=== PATIENT | female | born 1955 | race Caucasian/White ===

== ENCOUNTER 2018-01-01 14:59 | Inpatient (IN) | payer MEDICARE ==
[~2018-01-01] VITALS: Ht 157.5 cm; Wt 74.8 kg
[~2018-01-01 14:59] MED LIST: AMLO10 PO; Bactrim Ds Tab1 EACH PO; CEPH500 PO; CYCL10 PO; Cleocin HCl300 MG PO; ERYT.5TO RIGHTEYE; FENT25TP TOP; IBUP800 PO; OXYACE5T PO; Oxycodone HCl20 M1 PO; SIMV10 PO; Ultram50 MG PO; Zofran Odt4 MG SL; Zofran8 MG PO
[2018-01-01 15:41] LABS: BASOPHILS ABSOLUTE AUTO 0.03 K/mm3 (0.00-0.23); BASOPHILS PERCENT AUTO 0 % (0-2); EOSINOPHILS ABSOLUTE AUTO 0.02 K/mm3 (0.00-0.68); EOSINOPHILS PERCENT AUTO 0 % (0-6); Hematocrit 41.8 % (33.0-51.0); Hemoglobin 13.4 g/dL (11.5-16.0); IMMATURE GRAN ABSOLUTE AUTO 0.03 K/mm3 (0.00-0.10); IMMATURE GRAN PERCENT AUTO 0 % (0-1); LYMPHOCYTES PERCENT AUTO 15 % (21-46); MONOCYTES ABSOLUTE AUTO 0.49 K/mm3 (0.16-1.47); MONOCYTES PERCENT AUTO 6 % (4-13); Mean Corpuscular HGB 32.8 pg (26.0-34.0); Mean Corpuscular HGB Conc 32.1 g/dL (31.5-36.5); Mean Corpuscular Volume 103 fL (80-100); NEUTROPHILS ABSOLUTE AUTO 6.02 K/mm3 (1.96-9.15); NEUTROPHILS PERCENT AUTO 77 % (41-73); Platelet Count 445 K/mm3 (150-400); RDW Standard Deviation 52.8 fL (35.1-46.3); Red Blood Cell Count 4.08 M/mm3 (3.80-5.20); White Blood Cell Count 7.79 K/mm3 (4.00-11.30)
[2018-01-01 16:03] LABS: Alanine Aminotransfer (ALT/SGP 19 U/L (12-78); Albumin, Blood 2.9 g/dL (3.4-5.0); Albumin/Globulin Ratio 0.8 (0.8-1.8); Alk Phos 121 U/L (50-136); Anion Gap 8 mmol/L (6-16); Aspartate Aminotrans (AST/SGOT 18 U/L (12-37); Bilirubin, Total 0.5 mg/dL (0.1-1.0); Blood Urea Nitrogen 8 mg/dL (8-24); CO2, Blood 30 mmol/L (21-32); Calcium, Blood 8.7 mg/dL (8.5-10.1); Chloride, Blood 98 mmol/L (98-108); Creatinine, Blood 0.67 mg/dL (0.40-1.00); Globulin, Blood 3.8 g/dL (2.2-4.0); Glomerular Filtration Rate >60 (60-); Glucose, Blood 85 mg/dL (70-99); Potassium, Blood 4.2 mmol/L (3.5-5.5); Sodium, Blood 136 mmol/L (136-145); Total Protein, Blood 6.7 g/dL (6.4-8.2); Troponin I <0.015 ng/mL (0.000-0.040)
[2018-01-02 05:58] LABS: Anion Gap 4 mmol/L (6-16); Blood Urea Nitrogen 8 mg/dL (8-24); Bun/Creatinine Ratio 11.5 (12.0-20.0); CO2, Blood 33 mmol/L (21-32); Calcium, Blood 8.4 mg/dL (8.5-10.1); Chloride, Blood 99 mmol/L (98-108); Glomerular Filtration Rate >60 (60-); Glucose, Blood 95 mg/dL (70-99); Potassium, Blood 4.3 mmol/L (3.5-5.5); Sodium, Blood 136 mmol/L (136-145)
[2018-01-03 06:18] LABS: Anion Gap 6 mmol/L (6-16); Blood Urea Nitrogen 13 mg/dL (8-24); Bun/Creatinine Ratio 15.5 (12.0-20.0); CO2, Blood 35 mmol/L (21-32); Chloride, Blood 97 mmol/L (98-108); Creatinine, Blood 0.84 mg/dL (0.40-1.00); Glomerular Filtration Rate >60 (60-); Glucose, Blood 90 mg/dL (70-99); Potassium, Blood 4.6 mmol/L (3.5-5.5); Sodium, Blood 138 mmol/L (136-145)
[2018-01-04] MEDS ORDERED: Lopressor 25 mg25 MG PO (10:40)
[2018-01-04] MEDS ORDERED: Nicoderm Cq1 EAC1 TOP (10:41)
[2018-01-04] MEDS ORDERED: Klor-Con 1010 MEQ PO (10:43)
[2018-01-04] MEDS ORDERED: Dyazide 37.5-21 EACH PO (10:44)
[2018-01-04] MEDS ORDERED: FURO40 PO (10:44)
== END 2018-01-04 13:25 | disposition home or self-care (01) | DRG 293 ==
LOC: ER 14:59 → MEDS 15:00 → ENPENDDIS 01-04 10:00 → MEDS 01-04 13:25
PROVIDERS: Emergency Medicine; Hospitalist
PROC: 3E0234Z Introduction of Serum, Toxoid and Vaccine into Muscle, Percutaneous Approach (ICD-10-PCS; principal; 2018-01-01)
DX: I11.0 Hypertensive heart disease with heart failure (principal); I50.31 Acute diastolic (congestive) heart failure; E78.5 Hyperlipidemia, unspecified; G89.29 Other chronic pain; M54.9 Dorsalgia, unspecified; F17.200 Nicotine dependence, unspecified, uncomplicated; Z88.8 Allergy status to other drugs, medicaments and biological substances; Z23 Encounter for immunization
CPT/HCPCS: 36415; 71046; 80048; 80053; 83880; 84484; 85025; 90686; 93005; 93010; 93306; 96374; 99285-25; G0378; J1940

== ENCOUNTER 2018-07-05 16:13 | Emergency (ER) | payer MEDICARE ==
[~2018-07-05] VITALS: Ht 157.5 cm; Wt 63.5 kg
[~2018-07-05 16:13] MED LIST changes: +Dyazide 37.5-21 EACH PO; +FURO40 PO; +Klor-Con 1010 MEQ PO; +Lopressor 25 mg25 MG PO; +Nicoderm Cq1 EAC1 TOP; +Protonix40 MG PO; +SERT50 PO; +Zofran Odt8 MG SL
[2018-07-05 17:25] LABS: BASOPHILS ABSOLUTE AUTO 0.03 K/mm3 (0.00-0.23); BASOPHILS PERCENT AUTO 0 % (0-2); EOSINOPHILS PERCENT AUTO 0 % (0-6); Hematocrit 29.7 % (33.0-51.0); Hemoglobin 9.9 g/dL (11.5-16.0); IMMATURE GRAN ABSOLUTE AUTO 0.05 K/mm3 (0.00-0.10); IMMATURE GRAN PERCENT AUTO 0 % (0-1); LYMPHOCYTES ABSOLUTE AUTO 2.17 K/mm3 (0.84-5.20); LYMPHOCYTES PERCENT AUTO 17 % (21-46); MONOCYTES ABSOLUTE AUTO 0.54 K/mm3 (0.16-1.47); MONOCYTES PERCENT AUTO 4 % (4-13); Mean Corpuscular HGB 34.1 pg (26.0-34.0); Mean Corpuscular HGB Conc 33.3 g/dL (31.5-36.5); Mean Corpuscular Volume 102 fL (80-100); Mean Platelet Volume 9.9 fL (9.1-12.4); NEUTROPHILS ABSOLUTE AUTO 9.78 K/mm3 (1.96-9.15); NEUTROPHILS PERCENT AUTO 78 % (41-73); Platelet Count 442 K/mm3 (150-400); RDW Coefficient Variation 12.3 % (11.7-14.2); RDW Standard Deviation 46.6 fL (35.1-46.3); White Blood Cell Count 12.57 K/mm3 (4.00-11.30)
[2018-07-05 17:25] LABS: Influenza A Negative (NEGATIVE); Influenza B Negative (NEGATIVE)
[2018-07-05 17:45] LABS: Alanine Aminotransfer (ALT/SGP 19 U/L (12-78); Albumin, Blood 3.6 g/dL (3.4-5.0); Albumin/Globulin Ratio 1.2 (0.8-1.8); Alk Phos 69 U/L (50-136); Anion Gap 7 mmol/L (6-16); Aspartate Aminotrans (AST/SGOT 10 U/L (12-37); Bilirubin, Total 0.2 mg/dL (0.1-1.0); Blood Urea Nitrogen 39 mg/dL (8-24); Bun/Creatinine Ratio 52.8 (12.0-20.0); CO2, Blood 25 mmol/L (21-32); Chloride, Blood 100 mmol/L (98-108); Creatinine, Blood 0.74 mg/dL (0.40-1.00); Glomerular Filtration Rate >60 (60-); Glucose, Blood 113 mg/dL (70-99); Potassium, Blood 3.3 mmol/L (3.5-5.5); Sodium, Blood 132 mmol/L (136-145); Total Protein, Blood 6.6 g/dL (6.4-8.2); Troponin I <0.015 ng/mL (0.000-0.040)
[2018-07-05 20:28] LABS: Source, Urine Clean Catch
[2018-07-05 20:34] LABS: Bilirubin, Urine Neg (Neg); Blood, Urine 1+ (Neg); Glucose Qualitative, Urine Neg (Neg); Ketones, Urine 1+ (Neg); Leukocyte Esterase, Urine Neg (Neg); Nitrite, Urine Neg (Neg); Protein, Urine 1+ (Neg); Urobilinogen, Urine NORM (Normal)
[2018-07-05 20:46] LABS: Appearance, Urine Clear (Clear); Bacteria Rare /hpf; Color, Urine Yellow (P-Yellow); Red Blood Cells, Urine Rare /hpf (0-2); Squamous Epithelial Cells Few /hpf (Few); White Blood Cells, Urine Not Seen /hpf (0-5)
[2018-07-05] MEDS ORDERED: ONDA4ODT MM (22:22)
== END 2018-07-05 23:02 | disposition home or self-care (01) ==
LOC: ER 16:13
PROVIDERS: Emergency Medicine; Physician Assistant
DX: K52.9 Noninfective gastroenteritis and colitis, unspecified (principal); E86.0 Dehydration; D64.9 Anemia, unspecified; I10 Essential (primary) hypertension; E78.5 Hyperlipidemia, unspecified; G89.29 Other chronic pain; M54.2 Cervicalgia; M54.9 Dorsalgia, unspecified; F17.210 Nicotine dependence, cigarettes, uncomplicated; Z88.8 Allergy status to other drugs, medicaments and biological substances; Z79.899 Other long term (current) drug therapy
CPT/HCPCS: 36415; 71046; 74018; 80053; 81001; 82272; 83605; 83690; 83880; 84484; 85025; 87804; 93005; 93010; 96361; 96374; 96375; 99284-25; A9270-GY; J1630; J2405; J7030

== ENCOUNTER → 2019-06-20 | Outpatient (CLI) | payer MEDICARE ==
[~2019-06-20] MED LIST changes: +ONDA4ODT MM
== END | disposition home or self-care (01) ==
LOC: PLD 11:57 → LAB SHORT 11:57
DX: D11.9 Benign neoplasm of major salivary gland, unspecified (principal)
CPT/HCPCS: 88173

== ENCOUNTER 2020-06-27 13:32 | Observation (INO) | payer MEDICARE, OTHER ==
[~2020-06-27] VITALS: Ht 157.5 cm; Wt 63.2 kg
[~2020-06-27 13:32] MED LIST changes: +ATOR20 PO; +DULO60 PO; +FURO20 PO; +LIDO700A20 TD; +NICO21TP TOP; +PANT20 PO; +VANCOCIN HCL125 MG PO
[2020-06-27 13:57] LABS: BASOPHILS ABSOLUTE AUTO 0.01 K/mm3 (0.00-0.23); BASOPHILS PERCENT AUTO 0 % (0-2); EOSINOPHILS PERCENT AUTO 0 % (0-6); Hematocrit 41.5 % (33.0-51.0); Hemoglobin 14.1 g/dL (11.5-16.0); IMMATURE GRAN ABSOLUTE AUTO 0.04 K/mm3 (0.00-0.10); IMMATURE GRAN PERCENT AUTO 1 % (0-1); LYMPHOCYTES PERCENT AUTO 7 % (21-46); MONOCYTES ABSOLUTE AUTO 0.15 K/mm3 (0.16-1.47); MONOCYTES PERCENT AUTO 2 % (4-13); Mean Corpuscular HGB 39.7 pg (26.0-34.0); Mean Corpuscular Volume 117 fL (80-100); Mean Platelet Volume 8.9 fL (9.1-12.4); NEUTROPHILS ABSOLUTE AUTO 6.94 K/mm3 (1.96-9.15); NEUTROPHILS PERCENT AUTO 91 % (41-73); Platelet Count 421 K/mm3 (150-400); RDW Standard Deviation 62.2 fL (35.1-46.3); Red Blood Cell Count 3.55 M/mm3 (3.80-5.20); White Blood Cell Count 7.64 K/mm3 (4.00-11.30)
[2020-06-27 14:18] LABS: Alanine Aminotransfer (ALT/SGP 22 U/L (12-78); Albumin, Blood 4.6 g/dL (3.4-5.0); Albumin/Globulin Ratio 1.3 (0.8-1.8); Alk Phos 167 U/L (50-136); Anion Gap 14 mmol/L (6-16); Aspartate Aminotrans (AST/SGOT 14 U/L (12-37); Bilirubin, Total 0.6 mg/dL (0.1-1.0); Blood Urea Nitrogen 15 mg/dL (8-24); Bun/Creatinine Ratio 33.7 (12.0-20.0); CO2, Blood 19 mmol/L (21-32); Calcium, Blood 10.3 mg/dL (8.5-10.1); Chloride, Blood 103 mmol/L (98-108); Creatinine, Blood 0.45 mg/dL (0.40-1.00); Globulin, Blood 3.6 g/dL (2.2-4.0); Glomerular Filtration Rate >60 (60-); Glucose, Blood 117 mg/dL (70-99); Potassium, Blood 3.7 mmol/L (3.5-5.5); Sodium, Blood 136 mmol/L (136-145); Total Protein, Blood 8.2 g/dL (6.4-8.2); Troponin I <0.015 ng/mL (0.000-0.040)
[2020-06-27 15:43] LABS: Influenza A, PCR NEGATIVE (NEGATIVE); Influenza B, PCR NEGATIVE (NEGATIVE); Resp Syncytial Virus, PCR NEGATIVE (NEGATIVE); SARS-Cov-2 (COVID-19) PCR, MMC NEGATIVE (NEGATIVE)
[2020-06-27] MEDS ORDERED: Oxycodone HCl20 M1 PO (17:02)
--- NOTE | 2020-06-27 19:22 | NUR ---
PT ADMITTED TO ROOM 361 FROM ED AT 1830. PT INSISTED ON GETTING INTO THE SHOWER AND UNCONNECTED FROM IVF AND ABX BUT TOLD TO MAKE IT FALCON SO WE COULD HOOK HER MEDS BACK. ORIENTED TO ROOM, CALL LIGHT AND SET UP.
[2020-06-27 21:44] LABS: Source, Urine Clean Catch
[2020-06-27 21:50] LABS: Bilirubin, Urine Neg (Neg); Blood, Urine 2+ (Neg); Glucose Qualitative, Urine Neg (Neg); Ketones, Urine 4+ (Neg); Leukocyte Esterase, Urine 1+ (Neg); Nitrite, Urine Neg (Neg); Protein, Urine 2+ (Neg); Specific Gravity, Urine 1.015 (1.003-1.022); Urobilinogen, Urine NORM (Normal)
[2020-06-27 21:55] LABS: Appearance, Urine Clear (Clear); Color, Urine Yellow (P-Yellow)
[2020-06-27 21:57] LABS: Bacteria Mod /hpf; Red Blood Cells, Urine 0-2 /hpf (0-2); Squamous Epithelial Cells Many /hpf (Few)
--- NOTE | 2020-06-27 22:19 | NUR ---
UA COLLECTED AND SENT TO LAB.
--- NOTE | 2020-06-28 04:10 | NUR ---
SHIFT SUMMARY PATIENT HAD NO ACUTE CHANGES OBSERVED. AXOX 3 AND SBA TO BR. PIV REMAINS INTACT. IV ABXS X3 INFUSED PER EMAR. NS INFUSING AT 75 mL/HR. PATIENT NAUSEOUS AND IV PHENERGAN 12.5 MG GIVEN WITH GOOD EFFECT. REPORTED BACK PAIN X ONE AND OXYCODONE GIVEN PER EMAR. PATIENT ABLE TO SLEEP WITH PAIN MANAGEMENT AND N/V CONTROLLED. VSS/AFEBRILE. STAFF RADIOLOGIST REPORTS ST 117. URINE SAMPLE COLLECTED AND SENT TO LAB. CALL LIGHT IN REACH. BED IN LOWEST POSITION. WILL CONTINUE TO MONITOR UNTIL DAY SHIFT NURSE ASSUMES CARE.
[2020-06-28 04:59] LABS: BASOPHILS ABSOLUTE AUTO 0.01 K/mm3 (0.00-0.23); BASOPHILS PERCENT AUTO 0 % (0-2); EOSINOPHILS PERCENT AUTO 0 % (0-6); Hematocrit 33.3 % (33.0-51.0); Hemoglobin 11.4 g/dL (11.5-16.0); IMMATURE GRAN ABSOLUTE AUTO 0.03 K/mm3 (0.00-0.10); IMMATURE GRAN PERCENT AUTO 0 % (0-1); LYMPHOCYTES ABSOLUTE AUTO 0.84 K/mm3 (0.84-5.20); LYMPHOCYTES PERCENT AUTO 12 % (21-46); MONOCYTES ABSOLUTE AUTO 0.76 K/mm3 (0.16-1.47); MONOCYTES PERCENT AUTO 11 % (4-13); Mean Corpuscular HGB 39.9 pg (26.0-34.0); Mean Corpuscular HGB Conc 34.2 g/dL (31.5-36.5); Mean Corpuscular Volume 116 fL (80-100); Mean Platelet Volume 8.9 fL (9.1-12.4); NEUTROPHILS ABSOLUTE AUTO 5.12 K/mm3 (1.96-9.15); NEUTROPHILS PERCENT AUTO 76 % (41-73); Platelet Count 310 K/mm3 (150-400); RDW Coefficient Variation 14.3 % (11.7-14.2); RDW Standard Deviation 61.7 fL (35.1-46.3); Red Blood Cell Count 2.86 M/mm3 (3.80-5.20); White Blood Cell Count 6.76 K/mm3 (4.00-11.30)
[2020-06-28 05:15] LABS: Anion Gap 10 mmol/L (6-16); Blood Urea Nitrogen 11 mg/dL (8-24); Bun/Creatinine Ratio 23.5 (12.0-20.0); CO2, Blood 24 mmol/L (21-32); Calcium, Blood 9.1 mg/dL (8.5-10.1); Chloride, Blood 103 mmol/L (98-108); Creatinine, Blood 0.47 mg/dL (0.40-1.00); Glomerular Filtration Rate >60 (60-); Glucose, Blood 88 mg/dL (70-99); Potassium, Blood 3.6 mmol/L (3.5-5.5); Sodium, Blood 137 mmol/L (136-145)
[2020-06-28] MEDS ORDERED: ACET325 PO (15:14)
[2020-06-28] MEDS ORDERED: ALBU2.5V5 INH (15:27)
[2020-06-28] MEDS ORDERED: LEVFLO500 PO (15:27)
[2020-06-28] MEDS ORDERED: FLUT1DIS5 INH (15:28)
[2020-06-28] MEDS ORDERED: METR500 PO (15:28)
[2020-06-28] MEDS ORDERED: PROM25 PO (15:29)
[2020-06-28] MEDS ORDERED: VISBIOME 112.51 EACH PO (15:30)
--- NOTE | 2020-06-28 16:28 | NUR ---
DISCHARGE SUMMARY LOIDA LEFT WITH HER GRANDAUGHTER BY CAR. MEDS FAXED TO [facility], PIV REMOVED, PAPERWORK GONEN OVER. F/U APPT MADE FOR HER WITH PCP, SHE IS AWARE OF TIME AND DATE. ESCORTED TO HER CAR
[2020-06-29] MEDS ORDERED: K-Dur20 MEQ PO (14:44)
[2020-06-29] MEDS ORDERED: PROM25 PO (14:44)
[2020-06-29] MEDS ORDERED: SUBOXONE 8 MG-1 EACH SL (14:54)
== END 2020-06-28 16:29 | disposition home or self-care (01) ==
LOC: ER 13:32 → MEDS 13:33
PROVIDERS: Emergency Medicine; ADMIT Family Medicine
DX: A41.1 Sepsis due to other specified staphylococcus (principal); K52.9 Noninfective gastroenteritis and colitis, unspecified; R06.02 Shortness of breath; E78.5 Hyperlipidemia, unspecified; I11.0 Hypertensive heart disease with heart failure; I50.9 Heart failure, unspecified; J44.9 Chronic obstructive pulmonary disease, unspecified; E83.52 Hypercalcemia; R74.8 Abnormal levels of other serum enzymes; F17.210 Nicotine dependence, cigarettes, uncomplicated; D47.3 Essential (hemorrhagic) thrombocythemia; K21.9 Gastro-esophageal reflux disease without esophagitis; R79.81 Abnormal blood-gas level; G89.29 Other chronic pain; M54.2 Cervicalgia; M54.9 Dorsalgia, unspecified; Z88.8 Allergy status to other drugs, medicaments and biological substances; Z87.11 Personal history of peptic ulcer disease; Z79.891 Long term (current) use of opiate analgesic; Z20.822 Contact with and (suspected) exposure to COVID-19
CPT/HCPCS: 0241U; 36415; 71045; 74177; 80048; 80053; 81001; 83605; 83880; 84484; 85025; 87040; 87086; 93005; 93010; 94640; 94760; 96361; 96366; 96367; 96372; 96374-59; 96375; 96376; 99285-25; A9270; G0378; J0696; J0744; J0780; J1200; J1650; J2550; J2765; J3010; J7030; Q9967

== ENCOUNTER 2020-06-29 11:18 | Emergency (ER) | payer MEDICARE, OTHER ==
[~2020-06-29] VITALS: Ht 157.5 cm; Wt 56.2 kg
[~2020-06-29 11:18] MED LIST changes: +ACET325 PO; +ALBU2.5V5 INH; +FLUT1DIS5 INH; +LEVFLO500 PO; +METR500 PO; +PROM25 PO; +VISBIOME 112.51 EACH PO
[2020-06-29 11:51] LABS: BASOPHILS ABSOLUTE AUTO 0.01 K/mm3 (0.00-0.23); BASOPHILS PERCENT AUTO 0 % (0-2); EOSINOPHILS PERCENT AUTO 0 % (0-6); Hematocrit 37.6 % (33.0-51.0); Hemoglobin 13.4 g/dL (11.5-16.0); IMMATURE GRAN ABSOLUTE AUTO 0.03 K/mm3 (0.00-0.10); IMMATURE GRAN PERCENT AUTO 1 % (0-1); LYMPHOCYTES ABSOLUTE AUTO 1.06 K/mm3 (0.84-5.20); LYMPHOCYTES PERCENT AUTO 17 % (21-46); MONOCYTES ABSOLUTE AUTO 0.63 K/mm3 (0.16-1.47); MONOCYTES PERCENT AUTO 10 % (4-13); Mean Corpuscular HGB 40.5 pg (26.0-34.0); Mean Corpuscular HGB Conc 35.6 g/dL (31.5-36.5); Mean Corpuscular Volume 114 fL (80-100); Mean Platelet Volume 8.3 fL (9.1-12.4); NEUTROPHILS ABSOLUTE AUTO 4.47 K/mm3 (1.96-9.15); NEUTROPHILS PERCENT AUTO 72 % (41-73); Platelet Count 340 K/mm3 (150-400); RDW Coefficient Variation 13.5 % (11.7-14.2); RDW Standard Deviation 57.1 fL (35.1-46.3); Red Blood Cell Count 3.31 M/mm3 (3.80-5.20)
[2020-06-29 12:10] LABS: Alanine Aminotransfer (ALT/SGP 41 U/L (12-78); Albumin, Blood 4.1 g/dL (3.4-5.0); Albumin/Globulin Ratio 1.2 (0.8-1.8); Alk Phos 140 U/L (50-136); Anion Gap 8 mmol/L (6-16); Aspartate Aminotrans (AST/SGOT 36 U/L (12-37); Bilirubin, Total 0.5 mg/dL (0.1-1.0); Blood Urea Nitrogen 7 mg/dL (8-24); Bun/Creatinine Ratio 13.8 (12.0-20.0); CO2, Blood 30 mmol/L (21-32); Calcium, Blood 9.6 mg/dL (8.5-10.1); Chloride, Blood 96 mmol/L (98-108); Creatinine, Blood 0.51 mg/dL (0.40-1.00); Globulin, Blood 3.3 g/dL (2.2-4.0); Glomerular Filtration Rate >60 (60-); Glucose, Blood 120 mg/dL (70-99); Potassium, Blood 2.9 mmol/L (3.5-5.5); Sodium, Blood 134 mmol/L (136-145); Total Protein, Blood 7.4 g/dL (6.4-8.2)
[2020-06-29] MEDS ORDERED: PROM25 PO (14:44)
[2020-06-29] MEDS ORDERED: K-Dur20 MEQ PO (14:44)
[2020-06-29] MEDS ORDERED: SUBOXONE 8 MG-1 EACH SL (14:54)
== END 2020-06-29 15:00 | disposition home or self-care (01) ==
LOC: ER 11:18
PROVIDERS: Emergency Medicine
DX: E87.6 Hypokalemia (principal); K52.9 Noninfective gastroenteritis and colitis, unspecified; F11.20 Opioid dependence, uncomplicated; Z71.51 Drug abuse counseling and surveillance of drug abuser; Z88.8 Allergy status to other drugs, medicaments and biological substances; Z79.899 Other long term (current) drug therapy
CPT/HCPCS: 36415; 80053; 85025; 93005; 93010; 94640; 96361; 96374; 99285-25; A9270; J2405; J7120

== ENCOUNTER 2020-10-07 12:53 | Inpatient (IN) | payer MEDICARE ==
[~2020-10-07] VITALS: Ht 157.5 cm; Wt 52.7 kg
[~2020-10-07 12:53] MED LIST changes: +K-Dur20 MEQ PO; +SUBOXONE 8 MG-1 EACH SL
[2020-10-07 14:15] LABS: BASOPHILS ABSOLUTE AUTO 0.02 K/mm3 (0.00-0.23); BASOPHILS PERCENT AUTO 0 % (0-2); EOSINOPHILS ABSOLUTE AUTO 0.01 K/mm3 (0.00-0.68); EOSINOPHILS PERCENT AUTO 0 % (0-6); Hematocrit 31.5 % (33.0-51.0); Hemoglobin 11.1 g/dL (11.5-16.0); IMMATURE GRAN ABSOLUTE AUTO 0.11 K/mm3 (0.00-0.10); IMMATURE GRAN PERCENT AUTO 1 % (0-1); LYMPHOCYTES PERCENT AUTO 5 % (21-46); MONOCYTES PERCENT AUTO 6 % (4-13); Mean Corpuscular HGB 39.5 pg (26.0-34.0); Mean Corpuscular HGB Conc 35.2 g/dL (31.5-36.5); Mean Corpuscular Volume 112 fL (80-100); NEUTROPHILS ABSOLUTE AUTO 9.38 K/mm3 (1.96-9.15); NEUTROPHILS PERCENT AUTO 88 % (41-73); NRBC ABSOLUTE 0.04 K/mm3 (0.00-0.02); NRBC Auto 0.4 /100 WBC (0.0-0.2); RDW Coefficient Variation 18.5 % (11.7-14.2); RDW Standard Deviation 77.7 fL (35.1-46.3); Red Blood Cell Count 2.81 M/mm3 (3.80-5.20); White Blood Cell Count 10.62 K/mm3 (4.00-11.30)
[2020-10-07 14:17] LABS: Mean Platelet Volume 9.5 fL (9.1-12.4); Platelet Count 291 K/mm3 (150-400)
[2020-10-07 14:29] LABS: Ethanol (Alcohol), Blood, Med <3 mg/dL; Salicylate 4.3 mg/dL (2.8-20.0)
[2020-10-07 14:35] LABS: Acetaminophen, Random <2.0 ug/mL (10.0-30.0)
[2020-10-07 14:36] LABS: Alanine Aminotransfer (ALT/SGP 37 U/L (12-78); Albumin, Blood 3.2 g/dL (3.4-5.0); Albumin/Globulin Ratio 1.2 (0.8-1.8); Alk Phos 137 U/L (50-136); Anion Gap 14 mmol/L (6-16); Aspartate Aminotrans (AST/SGOT 40 U/L (12-37); Bilirubin, Total 0.4 mg/dL (0.1-1.0); Blood Urea Nitrogen 10 mg/dL (8-24); Bun/Creatinine Ratio 7.9 (12.0-20.0); CO2, Blood 18 mmol/L (21-32); Chloride, Blood 102 mmol/L (98-108); Creatinine, Blood 1.26 mg/dL (0.40-1.00); Globulin, Blood 2.7 g/dL (2.2-4.0); Glomerular Filtration Rate 45 (60-); Glucose, Blood 115 mg/dL (70-99); Potassium, Blood 2.4 mmol/L (3.5-5.5); Sodium, Blood 134 mmol/L (136-145); Total Protein, Blood 5.9 g/dL (6.4-8.2)
[2020-10-07 15:16] LABS: Magnesium, Blood 2.4 mg/dL (1.6-2.4)
[2020-10-07] MEDS ORDERED: PANT20 PO (15:55)
[2020-10-07] MEDS ORDERED: LISINOPRIL2.5 MG PO (15:56)
[2020-10-07] MEDS ORDERED: ATORVASTATIN CA20 MG PO (15:56)
[2020-10-07] MEDS ORDERED: ZOLOFT50 MG PO (15:56)
[2020-10-07] MEDS ORDERED: METO50ER PO (15:57)
[2020-10-07 18:19] LABS: Source, Urine Catheter
[2020-10-07 18:24] LABS: Appearance, Urine Clear (Clear); Bilirubin, Urine Neg (Neg); Blood, Urine 5+ (Neg); Color, Urine Yellow (P-Yellow); Glucose Qualitative, Urine Neg (Neg); Ketones, Urine Neg (Neg); Leukocyte Esterase, Urine Neg (Neg); Nitrite, Urine Neg (Neg); Protein, Urine 2+ (Neg); Urobilinogen, Urine NORM (Normal)
[2020-10-07 18:41] LABS: Amorphous Light (0-Heavy); Bacteria Few /hpf; Red Blood Cells, Urine 0-2 /hpf (0-2); Squamous Epithelial Cells Mod /hpf (Few); Transitional Epithelial Cells Few /hpf (0-Rare); White Blood Cells, Urine Rare /hpf (0-5)
[2020-10-07 18:43] LABS: U Amphetamine Screen Not Detected; U Barbituate Screen Not Detected; U Benzodiazapine Screen Not Detected; U Buprenorphine Screen Not Detected; U Cannabinoids Screen Not Detected; U Cocaine Screen Not Detected; U Methadone Screen Not Detected; U Methamphetamine Screen Not Detected; U Opiates Screen Not Detected; U Oxycodone Screen DETECTED; U Phencyclidine Screen Not Detected; U Propoxyphene Screen Not Detected
[2020-10-07 21:05] LABS: Anion Gap 12 mmol/L (6-16); Blood Urea Nitrogen 10 mg/dL (8-24); Bun/Creatinine Ratio 11.1 (12.0-20.0); CO2, Blood 16 mmol/L (21-32); Calcium, Blood 8.8 mg/dL (8.5-10.1); Chloride, Blood 111 mmol/L (98-108); Glomerular Filtration Rate >60 (60-); Glucose, Blood 106 mg/dL (70-99); Potassium, Blood 3.5 mmol/L (3.5-5.5); Sodium, Blood 139 mmol/L (136-145)
--- NOTE | 2020-10-08 01:52 | NUR ---
ASSUMPTION OF CARE PT ARRIVED TO THE ICU FROM ER VIA GURNEY, TRANSFERRED TO BED VIA SLIDER SHEET. PER REPORT PT MAY HAVE MISTAKENLY INGESTED MORE THAN HER PRESCRIBED DOSE OF OXYCODONE. ER NURSE REPORTS PT SEEMED TO WAKE UP AFTER NARCAN ADMINISTRATION. UPON ARRIVAL, PT WOULD WAKEN TO NOXIOUS STIMULI AND STATE HER NAME AND TOWN, BUT QUICKLY FALL BACK ASLEEP. PT HYPOTENSIVE, ON A LEVOPHED GTT @ 7.5MCG/MIN IN 20GA IV IN L WRIST. OTHER THAN HYPOTENSION, PTS VSS STABLE. HOSPITALIST CALLED FOR ONE TIME DOSAGE OF NARCA. 0.4MG GIVEN IV, PT QUICKLY WOKE UP AND YAWNED, REMAINED ALERT FOR ABOUT 3-[address] SALGADO NOTIFIED OF PTS CHANGE IN CONDITION, NARCAN GTT ORDERED. SHORTLY AFTER INITIATING AT 1MG/HR, PT BECAME FULLY ALERT. LEVOPHED TITRATED OFF AND NARCAN GTT CONTINUES @ 0.4MG/HR. PT ABLE TO WALK TO BEDSIDE COMMODE WITH ONE PERSON STANDBY. WILL CONTINUE TO MONITOR CLOSELY.
--- NOTE | 2020-10-08 02:42 | NUR ---
UPDATE PHONE CALL WITH DAUGHTER SPOKE WITH PTS DAUGHTER, LUIS CARLOS. LUIS CARLOS STATED PT LIVES AT HOME WITH LOIDA VILLAFANA, BUT HER BROTHER SALVADOR ALLOCATES HER DAILY MEDICATIONS. PER LUIS CARLOS, SALVADOR GIVES PT HER DAILY MEDS FOR PT TO SPREAD OUT T/O THE DAY NEEDED. PT HAS BEEN MORE SEDATED THAN USUAL THE PAST 5 DAYS. LUIS CARLOS SUSPECTS PT MAY BE TAKING ALL OF HER DAILY DOSAGE AT ONE TIME, BUT IS NOT SURE. LUIS CARLOS ALSO STATED PT HAS BEEN FALLING ASLEEP ON THE COMMODE, WHICH RESULTED IN THE SMALL AMIRA ON HER NOSE.
[2020-10-08 04:00] LABS: Hematocrit 30.1 % (33.0-51.0); Hemoglobin 10.7 g/dL (11.5-16.0); Mean Corpuscular HGB 39.8 pg (26.0-34.0); Mean Corpuscular HGB Conc 35.5 g/dL (31.5-36.5); Mean Corpuscular Volume 112 fL (80-100); Mean Platelet Volume 9.5 fL (9.1-12.4); NRBC ABSOLUTE 0.04 K/mm3 (0.00-0.02); NRBC Auto 0.4 /100 WBC (0.0-0.2); Platelet Count 284 K/mm3 (150-400); RDW Coefficient Variation 18.5 % (11.7-14.2); RDW Standard Deviation 75.7 fL (35.1-46.3); Red Blood Cell Count 2.69 M/mm3 (3.80-5.20); White Blood Cell Count 9.81 K/mm3 (4.00-11.30)
[2020-10-08 04:34] LABS: Albumin, Blood 2.7 g/dL (3.4-5.0); Anion Gap 14 mmol/L (6-16); Blood Urea Nitrogen 9 mg/dL (8-24); CO2, Blood 16 mmol/L (21-32); Calcium, Blood 8.6 mg/dL (8.5-10.1); Chloride, Blood 112 mmol/L (98-108); Creatinine, Blood 0.82 mg/dL (0.40-1.00); Glomerular Filtration Rate >60 (60-); Glucose, Blood 100 mg/dL (70-99); Magnesium, Blood 2.2 mg/dL (1.6-2.4); Phosphorus, Blood 1.6 mg/dL (2.5-4.9); Potassium, Blood 2.7 mmol/L (3.5-5.5); Sodium, Blood 142 mmol/L (136-145); Thyroid Stimulating Hormone 0.192 uIU/mL (0.360-4.800)
--- NOTE | 2020-10-08 06:46 | NUR ---
SHIFT SUMMARY PT REMAINS ON THE NARCAN GTT, TITRATED T/O THE NIGHT, CURRENTLY @ 0.7MG/HR. LEVOPHED GTT REMAINS OFF C NARCAN INFUSING. PT ALERT AND ORIENTED TO PERSON AND YEAR; UNSURE OF PTS BASELINE. FOLLOWS COMMANDS, ABLE TO WALK WITH ASSISTANCE TO THE BEDSIDE COMMODE. TWO BM'S DURING THE NIGHT. ONE INCONTINENT BM THIS AM, SMALL, LOOSE STOOL. PT ABLE TO ASSIST WITH CLEANUP AT BS COMMODE. QUICKLY BACK TO SLEEP ONCE IN BED, EASILY AROUSABLE. KPHOS CURRENTLY INFUSING. NO OTHER SIGNIFICANT CHANGES IN PT CONDITION. WILL CONTINUE TO MONITOR CLOSELY.
--- NOTE | 2020-10-08 07:47 | NUR ---
ASSUMED CARE AT 0700, SLEEPING BUT AROUSABLE TO VOICE. A/A/OX3, REPOSITIONS SELF IN BED NEEDED. NARCAN INFUSING AT 0.7, VSS, WILL CONTINUE TO MONITOR AND TREAT.
--- NOTE | 2020-10-08 12:26 | NUR ---
ASSISTED WITH LUNCH BY TECHNICAL PLANNER. RESTRAINTS REMOVED FOR EATING AND REPLACED. AGITATED STATING WANTS TO LEAVE. DISCUSSED RESTRAINTS AND EDUCATED, UNABLE TO VERBALLY CONTRACT FOR SAFTEY. RESTRAIN\TS REPLACED.
--- NOTE | 2020-10-08 13:21 | NUR ---
NARCAN TITRATED DOWN TO 0.4, AWAKE AND COOPERATIVE, WILL CONTINUE TO MONITOR.
--- NOTE | 2020-10-08 15:13 | NUR ---
AWAKE AND COOPERATIVE WITH CARE. VSS, NARCAN DRIP STOPPED, WILL CONTINUE TO MONITOR.
--- NOTE | 2020-10-08 17:31 | NUR ---
CALLED DAUGHTER AND UPDATED THAT STATUS IS NOW MEDICAL AND MOVED TO ROOM 355.
--- NOTE | 2020-10-08 18:14 | NUR ---
REPORT TO MEDICAL FLOOR RN ESTHELA TO ASSUME CARE. A/A/OX4 AT TIME OF TRANSFER. SLEEPY BUT AWAKES EASILY. UP TO BEDSIDE COMMODE DURING SHIFT WITH WALKER AND STAND BY ASSIST. IV FLUIDS INFUSING AT 75ML/HR. ATTENDS IN PLACE.
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
--- NOTE | 2020-10-08 21:13 | NUR ---
MEDICATED PER EMAR. ASKING TO GET INTO THE SHOWER. OFFERED HER THE HEATING PAD WELL BUT SHE DENIED IT. DENIED ANY OTHER NEEDS AT THIS TIME. FALL PROTOCOL IN PLACE.
--- NOTE | 2020-10-08 22:00 | NUR ---
RESTING WITH HER EYES CLOSED. SHE IS WAKING UP MORE OFF AND ON. DRINKING MORE FLUIDS. WILL CONTINUE TO MONITOR. FALL PROTOCOL IN PLACE.
[2020-10-09 05:45] LABS: Anion Gap 13 mmol/L (6-16); Blood Urea Nitrogen 6 mg/dL (8-24); Bun/Creatinine Ratio 10.4 (12.0-20.0); CO2, Blood 18 mmol/L (21-32); Calcium, Blood 8.5 mg/dL (8.5-10.1); Chloride, Blood 110 mmol/L (98-108); Creatinine, Blood 0.58 mg/dL (0.40-1.00); Glomerular Filtration Rate >60 (60-); Glucose, Blood 111 mg/dL (70-99); Potassium, Blood 2.5 mmol/L (3.5-5.5); Sodium, Blood 141 mmol/L (136-145)
--- NOTE | 2020-10-09 06:01 | NUR ---
SHIFT SUMMARY: AOX3, SOME FORGETFULNESS. REPORTS PAIN 6/7 IN NECK AND BACK. SLEEPING OFF AND ON. ABLE TO STAND AND WALK TO THE BATHROOM WITH ASSIST. LUNGS DIMINISHED. MILD EDEMA IN THE LEGS. VS WNL, AFEBRILE. POTASSIUM 2.5. CALL PLACED TO HOSPITALIST. WILL POSSIBLY GIVE POTASSIUM WHEN ORDER IS RECEIVED. NO OTHER CHANGES. DOES SET OFF BED ALARM A COUPLE OF TIMES T/O THE NIGHT. FALL PROTOCOL IN PLACE.
[2020-10-09 14:32] LABS: Free Thyroxine 0.55 ng/dL (0.70-1.60); Potassium, Blood 3.5 mmol/L (3.5-5.5); Triiodothyronine, Free 0.94 pg/mL (2.18-3.98)
[2020-10-09] MEDS ORDERED: POTA10T PO (16:47)
--- NOTE | 2020-10-09 17:01 | NUR ---
DISCHARGE NOTE THIS RN REMOVED BOTH OF PT'S IVS PER DOCUMENTATION. EDITED DC INSTRUCTIONS AND MEDICATIONS PROVIDED TO PT INLCUDING POTASSIUM ORDERS. PT VERBALIZED UNDERSTANDING OF MEDICATIONS. PT ASSISTED INTO HOME CLOTHING BY MILK WAGON DRIVER. PT BELONGINGS GATHERED. PT ASSISTED INTO WHEELCHAIR AND LEFT BUILDING WITH MILK WAGON DRIVER AND BELONGINGS. PT LEFT IN PRIVATE VEHICLE WITH FAMILY.
== END 2020-10-09 17:01 | disposition home or self-care (01) | DRG 917 ==
LOC: ER 12:53 → ERHOLD 15:44 → ICUW 22:15 → MEDS 10-08 18:32
PROVIDERS: Emergency Medicine; Internal Medicine; ADMIT Internal Medicine
PROC: 3E033XZ Introduction of Vasopressor into Peripheral Vein, Percutaneous Approach (ICD-10-PCS; principal; 2020-10-07)
DX: T40.2X1A Poisoning by other opioids, accidental (unintentional), initial encounter (principal); G92 Toxic encephalopathy; N17.9 Acute kidney failure, unspecified; E46 Unspecified protein-calorie malnutrition; I11.0 Hypertensive heart disease with heart failure; I50.9 Heart failure, unspecified; Z68.23 Body mass index [BMI] 23.0-23.9, adult; J44.9 Chronic obstructive pulmonary disease, unspecified; M54.9 Dorsalgia, unspecified; E78.5 Hyperlipidemia, unspecified; G89.29 Other chronic pain; F32.9 Major depressive disorder, single episode, unspecified; M54.2 Cervicalgia; F17.210 Nicotine dependence, cigarettes, uncomplicated; Z88.8 Allergy status to other drugs, medicaments and biological substances; Z79.899 Other long term (current) drug therapy; Z90.89 Acquired absence of other organs; Z98.890 Other specified postprocedural states; Z98.51 Tubal ligation status
CPT/HCPCS: 36415; 70450; 71046; 72125; 80048; 80053; 80069; 81001; 81025; 82140; 83690; 83735; 84132; 84439; 84443; 84481; 85025; 85027; 93005; 93010; 96365; 96366; 96367; 96375; 96376; 99285-25; A9270; G0480; J1650; J2310; J2405; J3475; J3480; J7030; J7060

== ENCOUNTER 2020-11-08 08:54 | Emergency (ER) | payer MEDICARE, OTHER ==
[~2020-11-08] VITALS: Ht 157.5 cm; Wt 53.5 kg
[~2020-11-08 08:54] MED LIST changes: +ATORVASTATIN CA20 MG PO; +LISINOPRIL2.5 MG PO; +METO50ER PO; +POTA10T PO; +ZOLOFT50 MG PO
[2020-11-08] MEDS ORDERED: FURO20 PO (09:56)
[2020-11-08] MEDS ORDERED: OXYACE7.5T PO (11:36)
[2020-11-08] MEDS ORDERED: ONDA4ODT MM (11:36)
== END 2020-11-08 11:59 | disposition home or self-care (01) ==
LOC: ER 08:54
DX: F11.23 Opioid dependence with withdrawal (principal); M54.9 Dorsalgia, unspecified; M54.2 Cervicalgia; G89.29 Other chronic pain; E78.5 Hyperlipidemia, unspecified; I11.0 Hypertensive heart disease with heart failure; I50.9 Heart failure, unspecified; J44.9 Chronic obstructive pulmonary disease, unspecified; F17.210 Nicotine dependence, cigarettes, uncomplicated; Z88.8 Allergy status to other drugs, medicaments and biological substances
CPT/HCPCS: 99283; A9270; J2405

== ENCOUNTER 2022-03-16 14:42 | Emergency (ER) | payer MEDICARE, OTHER ==
[~2022-03-16] VITALS: Ht 157.5 cm; Wt 59.0 kg
[~2022-03-16 14:42] MED LIST changes: +OXYACE7.5T PO
[2022-03-16 15:57] LABS: BASOPHILS ABSOLUTE AUTO 0.06 K/mm3 (0.00-0.23); BASOPHILS PERCENT AUTO 1 % (0-2); EOSINOPHILS ABSOLUTE AUTO 0.06 K/mm3 (0.00-0.68); EOSINOPHILS PERCENT AUTO 1 % (0-6); Hematocrit 45.1 % (33.0-51.0); Hemoglobin 14.8 g/dL (11.5-16.0); IMMATURE GRAN ABSOLUTE AUTO 0.05 K/mm3 (0.00-0.10); IMMATURE GRAN PERCENT AUTO 1 % (0-1); LYMPHOCYTES ABSOLUTE AUTO 1.16 K/mm3 (0.84-5.20); LYMPHOCYTES PERCENT AUTO 12 % (21-46); MONOCYTES ABSOLUTE AUTO 0.83 K/mm3 (0.16-1.47); MONOCYTES PERCENT AUTO 8 % (4-13); Mean Corpuscular HGB 36.1 pg (26.0-34.0); Mean Corpuscular HGB Conc 32.8 g/dL (31.5-36.5); Mean Corpuscular Volume 110 fL (80-100); Mean Platelet Volume 9.7 fL (9.1-12.4); NEUTROPHILS PERCENT AUTO 78 % (41-73); Platelet Count 300 K/mm3 (150-400); RDW Coefficient Variation 11.7 % (11.7-14.2); RDW Standard Deviation 47.4 fL (35.1-46.3); White Blood Cell Count 9.96 K/mm3 (4.00-11.30)
[2022-03-16 16:16] LABS: Albumin, Blood 3.5 g/dL (3.4-5.0); Bilirubin, Total 0.3 mg/dL (0.1-1.0); Calcium, Blood 9.5 mg/dL (8.5-10.1); Creatinine, Blood 0.52 mg/dL (0.40-1.00); Globulin, Blood 3.5 g/dL (2.2-4.0); Potassium, Blood 4.8 mmol/L (3.5-5.5)
[2022-03-16 17:06] LABS: Influenza A, PCR NEGATIVE (NEGATIVE); Influenza B, PCR NEGATIVE (NEGATIVE); Resp Syncytial Virus, PCR NEGATIVE (NEGATIVE); SARS-Cov-2 (COVID-19) PCR, MMC NEGATIVE (NEGATIVE)
[2022-03-17] MEDS ORDERED: Acetaminophen650 M1 PO (14:51)
[2022-03-17] MEDS ORDERED: BENADRYL25 MG PO (14:51)
== END 2022-03-16 19:55 | disposition home or self-care (01) ==
LOC: ER 14:42
PROVIDERS: Emergency Medicine; Physician Assistant
DX: J44.1 Chronic obstructive pulmonary disease with (acute) exacerbation (principal); I11.0 Hypertensive heart disease with heart failure; I50.9 Heart failure, unspecified; E78.5 Hyperlipidemia, unspecified; F17.210 Nicotine dependence, cigarettes, uncomplicated; Z88.8 Allergy status to other drugs, medicaments and biological substances; Z79.899 Other long term (current) drug therapy
CPT/HCPCS: 0241U; 36415; 71046; 80053; 83880; 84484; 85025; 93005; 93010; 94640; 94644; 94645; 94664; J1940; J7512

== ENCOUNTER 2022-03-16 20:09 | Inpatient (IN) | payer MEDICARE, OTHER ==
[~2022-03-16] VITALS: Ht 157.5 cm; Wt 59.0 kg
[2022-03-17 04:03] LABS: BASOPHILS ABSOLUTE AUTO 0.01 K/mm3 (0.00-0.23); BASOPHILS PERCENT AUTO 0 % (0-2); EOSINOPHILS PERCENT AUTO 0 % (0-6); Hematocrit 43.2 % (33.0-51.0); Hemoglobin 14.1 g/dL (11.5-16.0); IMMATURE GRAN ABSOLUTE AUTO 0.01 K/mm3 (0.00-0.10); IMMATURE GRAN PERCENT AUTO 0 % (0-1); LYMPHOCYTES ABSOLUTE AUTO 0.83 K/mm3 (0.84-5.20); LYMPHOCYTES PERCENT AUTO 17 % (21-46); MONOCYTES ABSOLUTE AUTO 0.39 K/mm3 (0.16-1.47); MONOCYTES PERCENT AUTO 8 % (4-13); Mean Corpuscular HGB 35.8 pg (26.0-34.0); Mean Corpuscular HGB Conc 32.6 g/dL (31.5-36.5); Mean Corpuscular Volume 110 fL (80-100); Mean Platelet Volume 10.2 fL (9.1-12.4); NEUTROPHILS ABSOLUTE AUTO 3.67 K/mm3 (1.96-9.15); NEUTROPHILS PERCENT AUTO 75 % (41-73); Platelet Count 268 K/mm3 (150-400); RDW Coefficient Variation 11.7 % (11.7-14.2); RDW Standard Deviation 48.1 fL (35.1-46.3); Red Blood Cell Count 3.94 M/mm3 (3.80-5.20); White Blood Cell Count 4.91 K/mm3 (4.00-11.30)
[2022-03-17 05:14] LABS: Bun/Creatinine Ratio 23.8 (12.0-20.0); Calcium, Blood 9.4 mg/dL (8.5-10.1); Creatinine, Blood 0.55 mg/dL (0.40-1.00); Potassium, Blood 4.5 mmol/L (3.5-5.5)
[2022-03-17] MEDS ORDERED: Acetaminophen650 M1 PO (14:51)
[2022-03-17] MEDS ORDERED: BENADRYL25 MG PO (14:51)
--- NOTE | 2022-03-17 15:27 | NUR ---
PATIENT CAME UP FROM ER TODAY AT 1530. SHE IS A&OX4. VS ARE WNL BUT IS ON 4L NC WITH >90% OXYGEN SATS. PATIENT REPORTS ONLY HAVING SOB WITH AMBULATION. LUNG SOUNDS ARE DIMINISHED THROUGHOUT AND HAS A SLIGHT MOIST COUGH. SHE IS A SBA TO THE BATHROOM. PATIENT IS TOLERATING PO INTAKE AND IS VOIDING/PASSING GAS. DAUGHTER IS AT BEDSIDE. CALL LIGHT WITHIN REACH. SHE IS CURRENTLY LAYING IN BED.
--- NOTE | 2022-03-17 16:11 | NUR ---
Echocardiogram completed.
[2022-03-18 05:37] LABS: Bun/Creatinine Ratio 24.4 (12.0-20.0); Calcium, Blood 9.4 mg/dL (8.5-10.1); Creatinine, Blood 0.66 mg/dL (0.40-1.00); Potassium, Blood 4.7 mmol/L (3.5-5.5)
--- NOTE | 2022-03-18 06:06 | NUR ---
SHIFT SUMMARY PT A&OX4, PLEASANT AND COOPERATIVE WITH CARE. PT WALKED THE HALLS A FEW TIMES BEFORE BED, WITH FWW. PT REPORTED THE SOB WITH EXERTION IS GETTING BETTER. INDEPENDENT IN ROOM. REMAINS ON 4L NC. PT RESTED MAJORITY OF SHIFT. TOLERATING PO INTAKE. CALLS APPROPRIATELY, CALL LIGHT WITHIN REACH.
--- NOTE | 2022-03-18 17:37 | NUR ---
SHIFT SUMMARY PT A&OX4, VSS/4LNC. HOME O2 EVAL COMPLETE 4LNC. AMB HALLWAY WITH PORT OXYGEN, DENIES NEED FOR INCREASED OXYGEN WITH EXERTION. DENIES PAIN. AWAITING ECHO, PLAN FOR DC TOMORROW. WILL REPORT TO ONCOMING NOC RN.
--- NOTE | 2022-03-19 05:31 | NUR ---
SHIFT SUMMARY PT A&OX4, PLEASANT COOPERATIVE WITH CARE. NO ACUTE CHANGES, VSS. MEDICATED ONCE WITH TYLENOL FOR NECK/BACK PAIN. INDEPENDENT IN ROOM/BATHROOM. AMBULATED HALLWAY WITH PORTABLE OXYGEN. REMAINS ON 4L NC. CALLS APPROPRIATELY, CALL LIGHT WITHIN REACH.
[2022-03-19 06:11] LABS: Bun/Creatinine Ratio 36.3 (12.0-20.0); Calcium, Blood 9.2 mg/dL (8.5-10.1); Creatinine, Blood 0.58 mg/dL (0.40-1.00); Potassium, Blood 4.2 mmol/L (3.5-5.5)
[2022-03-19 07:39] LABS: BASOPHILS PERCENT AUTO 0 % (0-2); EOSINOPHILS PERCENT AUTO 0 % (0-6); Hematocrit 42.5 % (33.0-51.0); Hemoglobin 13.9 g/dL (11.5-16.0); IMMATURE GRAN ABSOLUTE AUTO 0.02 K/mm3 (0.00-0.10); IMMATURE GRAN PERCENT AUTO 0 % (0-1); LYMPHOCYTES ABSOLUTE AUTO 0.56 K/mm3 (0.84-5.20); LYMPHOCYTES PERCENT AUTO 11 % (21-46); MONOCYTES ABSOLUTE AUTO 0.36 K/mm3 (0.16-1.47); MONOCYTES PERCENT AUTO 7 % (4-13); Mean Corpuscular HGB 35.4 pg (26.0-34.0); Mean Corpuscular HGB Conc 32.7 g/dL (31.5-36.5); Mean Corpuscular Volume 108 fL (80-100); Mean Platelet Volume 9.5 fL (9.1-12.4); NEUTROPHILS ABSOLUTE AUTO 4.12 K/mm3 (1.96-9.15); NEUTROPHILS PERCENT AUTO 81 % (41-73); Platelet Count 249 K/mm3 (150-400); RDW Coefficient Variation 11.6 % (11.7-14.2); RDW Standard Deviation 46.6 fL (35.1-46.3); Red Blood Cell Count 3.93 M/mm3 (3.80-5.20); White Blood Cell Count 5.06 K/mm3 (4.00-11.30)
[2022-03-19] MEDS ORDERED: ALBU2.5V5 INH (12:31)
[2022-03-19] MEDS ORDERED: BENZ100A PO (12:33)
[2022-03-19] MEDS ORDERED: FLUTICASONE-SA1 EA11 INH (12:37)
[2022-03-19] MEDS ORDERED: HYDHCL25 PO (12:37)
[2022-03-19] MEDS ORDERED: PRED20 PO (12:38)
[2022-03-19] MEDS ORDERED: NICO21TP TOP (12:38)
--- NOTE | 2022-03-19 13:21 | NUR ---
DISCHARGE SUMMARY PT A&OX4, VSS/4LNC PORTABLE OXYGEN FROM [facility] DELIVERED. [facility] HEADING TO PT HOME TO SET UP HOME O2 AND NEB. DC INS PROVIDED. PT REP UNDERSTANDING DC INS. CASIE PO. DENIES PAIN, SOB, CP/PRESSURE. AMB IND IN HALLWAYS, TO BRP, UP IN ROOM, SHOWERED TODAY. IV DC'D. LEFT FLOOR VIA WC WITH HER BROTHER TO GO HOME WITH ALL PERSONAL POSSESSIONS INCLUDING DC INS.
== END 2022-03-19 13:55 | disposition home or self-care (01) | DRG 291 ==
LOC: ER 20:09 → ERHOLD 03-17 05:28 → SURS 03-17 14:18
PROVIDERS: Emergency Medicine; Family Medicine; ADMIT Internal Medicine
DX: I11.0 Hypertensive heart disease with heart failure (principal); I50.33 Acute on chronic diastolic (congestive) heart failure; J96.01 Acute respiratory failure with hypoxia; E87.1 Hypo-osmolality and hyponatremia; J44.9 Chronic obstructive pulmonary disease, unspecified; F17.210 Nicotine dependence, cigarettes, uncomplicated; I70.0 Atherosclerosis of aorta; I27.20 Pulmonary hypertension, unspecified; I07.1 Rheumatic tricuspid insufficiency; M54.9 Dorsalgia, unspecified; M54.2 Cervicalgia; E78.5 Hyperlipidemia, unspecified; G89.29 Other chronic pain; Z23 Encounter for immunization; Z88.8 Allergy status to other drugs, medicaments and biological substances; Z79.899 Other long term (current) drug therapy; Z79.01 Long term (current) use of anticoagulants; Z79.51 Long term (current) use of inhaled steroids; Z79.891 Long term (current) use of opiate analgesic; Z98.890 Other specified postprocedural states; Z91.14 Patient's other noncompliance with medication regimen
CPT/HCPCS: 36415; 80048; 85025; 85379; 90686; 93306; 94640; 94664; 94760; 94761; 96374; 96375; 99285-25; A9270; J0456; J1650; J1940; J2405; J2930; J7050

== ENCOUNTER 2022-09-01 11:55 | Observation (INO) | payer MEDICARE, OTHER ==
[~2022-09-01] VITALS: Ht 157.5 cm; Wt 65.6 kg
[2022-09-01] VITALS (17 sets, daily range): BP systolic 72–108; BP diastolic 36–64
[~2022-09-01 11:55] MED LIST changes: +Acetaminophen650 M1 PO; +BENADRYL25 MG PO; +BENZ100A PO; +FLUTICASONE-SA1 EA11 INH; +HYDHCL25 PO; +KLOR-CON 1010 ME1 PO; +PRED20 PO
[2022-09-01 12:34] LABS: BASOPHILS ABSOLUTE AUTO 0.03 K/mm3 (0.00-0.23); BASOPHILS PERCENT AUTO 1 % (0-2); EOSINOPHILS ABSOLUTE AUTO 0.02 K/mm3 (0.00-0.68); EOSINOPHILS PERCENT AUTO 0 % (0-6); Hemoglobin 12.8 g/dL (11.5-16.0); IMMATURE GRAN ABSOLUTE AUTO 0.03 K/mm3 (0.00-0.10); IMMATURE GRAN PERCENT AUTO 1 % (0-1); LYMPHOCYTES PERCENT AUTO 30 % (21-46); MONOCYTES ABSOLUTE AUTO 0.56 K/mm3 (0.16-1.47); MONOCYTES PERCENT AUTO 11 % (4-13); Mean Corpuscular HGB 32.8 pg (26.0-34.0); Mean Corpuscular HGB Conc 36.6 g/dL (31.5-36.5); Mean Corpuscular Volume 90 fL (80-100); Mean Platelet Volume 10.3 fL (9.1-12.4); NEUTROPHILS ABSOLUTE AUTO 2.85 K/mm3 (1.96-9.15); NEUTROPHILS PERCENT AUTO 57 % (41-73); Platelet Count 243 K/mm3 (150-400); RDW Coefficient Variation 15.8 % (11.7-14.2); RDW Standard Deviation 49.2 fL (35.1-46.3); White Blood Cell Count 4.99 K/mm3 (4.00-11.30)
[2022-09-01 12:40] LABS: Calcium, Ionized (POC) 0.98 mmol/L (1.10-1.46); Chloride (POC) 79 mmol/L (98-108); Creatinine (POC) 2.4 mg/dL (0.6-1.0); Glucose (ISTAT POC) 106 mg/dL (70-99); Sodium (POC) 129 mmol/L (135-148); Total CO2 (POC) 36 mmol/L (21-32)
[2022-09-01 13:04] LABS: Albumin, Blood 2.7 g/dL (3.4-5.0); Albumin/Globulin Ratio 0.9 (0.8-1.8); Bilirubin, Total 4.3 mg/dL (0.1-1.0); Bun/Creatinine Ratio 29.5 (12.0-20.0); Calcium, Blood 8.1 mg/dL (8.5-10.1); Creatinine, Blood 1.66 mg/dL (0.40-1.00); Total Protein, Blood 5.7 g/dL (6.4-8.2)
[2022-09-01 13:06] LABS: Source, Urine Clean Catch
[2022-09-01 13:12] LABS: Bilirubin, Urine Neg (Neg); Blood, Urine Neg (Neg); Glucose Qualitative, Urine Neg (Neg); Ketones, Urine Neg (Neg); Leukocyte Esterase, Urine Neg (Neg); Nitrite, Urine Neg (Neg); Protein, Urine 1+ (Neg); Urobilinogen, Urine NORM (Normal)
[2022-09-01 13:19] LABS: Appearance, Urine Clear (Clear); Color, Urine Yellow (P-Yellow)
[2022-09-01] MEDS ORDERED: LISINOPRIL2.5 MG PO (15:25)
[2022-09-01] MEDS ORDERED: PANTOPRAZOLE SO40 M2 PO (15:25)
[2022-09-01] MEDS ORDERED: METOPROLOL SUCC25 MG PO (15:25)
[2022-09-01] MEDS ORDERED: ATORVASTATIN CA20 MG PO (15:25)
[2022-09-01] MEDS ORDERED: SOAANZ20 M3 PO (15:25)
--- NOTE | 2022-09-01 16:24 | NUR ---
Telephone report received from CORI Pulliam.
[2022-09-01] MEDS ORDERED: POTA8 PO (17:14)
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
--- NOTE | 2022-09-01 18:23 | NUR ---
Spiritual Care Consult: Dr. Montejo Pt. is sitting up eating dinner when she welcomes my visit. Pt. is unsettled with grief over the loss of her nephew who would have been 56 today. Listen with empathy and a calming presence. Pt. opened up and verbalized some other broken family relationships. Considered matters of olga and belief. With theraputic listening Pt. displayed evidence of being comforted and having a industrial engineering mood. Prayed with Pt. Pt. verbalized gratitude for the spiritual care visit.
[2022-09-02] VITALS (18 sets, daily range): BP systolic 89–141; BP diastolic 39–73
[2022-09-02 04:02] LABS: BASOPHILS ABSOLUTE AUTO 0.01 K/mm3 (0.00-0.23); BASOPHILS PERCENT AUTO 0 % (0-2); EOSINOPHILS ABSOLUTE AUTO 0.04 K/mm3 (0.00-0.68); EOSINOPHILS PERCENT AUTO 1 % (0-6); Hematocrit 28.8 % (33.0-51.0); Hemoglobin 10.3 g/dL (11.5-16.0); IMMATURE GRAN ABSOLUTE AUTO 0.02 K/mm3 (0.00-0.10); IMMATURE GRAN PERCENT AUTO 0 % (0-1); LYMPHOCYTES ABSOLUTE AUTO 2.02 K/mm3 (0.84-5.20); LYMPHOCYTES PERCENT AUTO 38 % (21-46); MONOCYTES ABSOLUTE AUTO 0.68 K/mm3 (0.16-1.47); MONOCYTES PERCENT AUTO 13 % (4-13); Mean Corpuscular HGB 32.4 pg (26.0-34.0); Mean Corpuscular HGB Conc 35.8 g/dL (31.5-36.5); Mean Corpuscular Volume 91 fL (80-100); Mean Platelet Volume 10.3 fL (9.1-12.4); NEUTROPHILS PERCENT AUTO 48 % (41-73); Platelet Count 173 K/mm3 (150-400); RDW Coefficient Variation 16.1 % (11.7-14.2); RDW Standard Deviation 51.7 fL (35.1-46.3); Red Blood Cell Count 3.18 M/mm3 (3.80-5.20); White Blood Cell Count 5.37 K/mm3 (4.00-11.30)
[2022-09-02 04:29] LABS: Albumin, Blood 2.3 g/dL (3.4-5.0); Bilirubin, Total 2.3 mg/dL (0.1-1.0); Calcium, Blood 7.9 mg/dL (8.5-10.1); Creatinine, Blood 1.14 mg/dL (0.40-1.00); Globulin, Blood 2.3 g/dL (2.2-4.0); Potassium, Blood 3.3 mmol/L (3.5-5.5); Total Protein, Blood 4.6 g/dL (6.4-8.2)
--- NOTE | 2022-09-02 06:42 | NUR ---
SHIFT SUMMARY: PT HAS BEEN A&OX4, PLEASANT AND COOPERATIVE. BP'S HAVE BEEN SOFT WITH MAP < 60 AT TIMES. PT HAS BEEN ASYMPTOMATIC THROUGHOUT. SPOKE WITH DR. Isaak CHRISTIAN ABOUT SOFT BP'S MULTIPLE TIMES. 250 ML BOLUS GIVEN X 2 AND 1 DOSE OF MIDRODINE GIVEN, SEE EMAR, BP STABILIZED THIS A.M. PT TOLERATED BOLUSES WITHOUT ANY INCREASE SOB, LUNG ROBERTS CLEAR. NO SYMPTOMS OF ALCOHOL WIHTDRAWL OBSERVED THROUGHOUT SHIFT.
[2022-09-02 13:08] LABS: Stool Occult Bld Immuno 1 Positive (NEGATIVE)
[2022-09-02 14:10] LABS: Hematocrit 31.5 % (33.0-51.0); Hemoglobin 11.3 g/dL (11.5-16.0)
[2022-09-02 14:32] LABS: Bun/Creatinine Ratio 28.7 (12.0-20.0); Calcium, Blood 8.8 mg/dL (8.5-10.1); Creatinine, Blood 1.08 mg/dL (0.40-1.00); Potassium, Blood 3.5 mmol/L (3.5-5.5)
--- NOTE | 2022-09-02 16:33 | NUR ---
IVs REMOVED AND PRESSURE DRESSED. PT EXPRESSED UNDERSTANDING OF DC TEACHING AND FOLLOW UP THAT IS URGENT THAT SHE GO FOR FOLLOW LAB WORK FOR H&H, SHE EXPRESSED UNDERSTANDING
== END 2022-09-02 17:28 | disposition home or self-care (01) ==
LOC: ER 11:55 → PCU 15:19
PROVIDERS: Family Medicine; Physician Assistant; Student in an Organized Health Care Education/Training Program; ADMIT Hospitalist
DX: N17.9 Acute kidney failure, unspecified (principal); J44.9 Chronic obstructive pulmonary disease, unspecified; I50.32 Chronic diastolic (congestive) heart failure; I11.0 Hypertensive heart disease with heart failure; E87.6 Hypokalemia; E87.1 Hypo-osmolality and hyponatremia; R55 Syncope and collapse; I95.9 Hypotension, unspecified; F17.210 Nicotine dependence, cigarettes, uncomplicated
CPT/HCPCS: 36415; 70450; 71045; 76705; 80047; 80048; 80053; 82274; 83690; 83735; 83880; 83935; 84484; 85014; 85018; 85025; 93005; 93010; 94762; 96361; 96365; 96366; 99285-25; A9270; C9113; J3480; J7030; J7050; J7120